=== PATIENT | female | born 1940 | race Caucasian/White ===

== ENCOUNTER 2017-12-10 13:46 | Outpatient (CLI) | payer MEDICARE, SELFPAY ==
--- NOTE | 2017-12-10 12:58 | W.PREOPHP ---
Documented by User: Sharlene Yixon 12/16/17 07:59 Assessment and Plan (1) Tear of right supraspinatus tendon: Current visit: No Status: Acute Plan: Reviewed surgery including surgical technique, pertinent anatomy, recovery process, benefits and risks including but not limited to risk of infection, blood clots, damage to soft tissue/blood vessels/nerves. After discussion patient understands risks and elects to proceed with surgery. Patient had opportunity to have questions answered to her satisfaction. Patient will continue with her preoperative visits and will be scheduled for right shoulder arthroscopy with rotator cuff repair with Dr. Gurrola, she will contact office if issues arise. History of Present Illness Narrative: Ms. Diop is a 77 old female who presents to clinic for preoperative visit for her scheduled right rotator cuff repair with Dr. Gurrola. Patient is right-hand dominant. Describes onset of right shoulder pain beginning 2 years ago and had gradually worsening of pain. She denies any known injury. Patient describes pain as an ache in the anterior lateral aspect of her shoulder that radiates posteriorly down the arm. Pain is aggravated by reaching behind her back and with certain movements. She describes being unable to lift any weighted object above shoulder height. Patient has seen her primary care provider for this and received 2 injections before being referred to orthopedic clinic where she received 2 additional posterior approach subacromial injections. Patient reports her last injection was on September 01, 2017 and it helped until early November. Patient has also attended two separate 6-week sessions of physical therapy, states the first round of physical therapy helped to have slight improvement in her strength but denies any further improvement. Patient's pain is slightly alleviated by heat and ice application as well as jzop-cgb-ohzctil pain medications. Patient denies any numbness or tingling. Patient denies any recent injuries or falls. Although patient has had pain relief from corticosteroid injections she continues to have weakness. At this time patient has failed conservative therapies and elects to have surgical intervention. 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 As per Dr. Gurrola's note on September 01, 2017 the MRI revealed high-grade partial but likely full-thickness tear of the supraspinatus tendon, as well as infraspinatus tendinosis. Pertinent Surgical Information Past medical history of GERD with history of peptic ulcer with H. pylori, reports last ulcer was in 2013 and denies any symptoms since. Reports acid reflux is under control and she takes ranitidine as needed. Describes history of irregular heartbeat that has been ongoing for numerous years. Describes occasional flutter with irregularity. Patient has seen her PCP for this issue previously and reports she has worn a Holter monitor. She denies any recent episodes. She denies any chest pain, difficulty breathing, diaphoresis or radiating pain when she experiences the flutter. As per patient's chart she has a history of adrenal mass however upon questioning patient denies any known history of adrenal mass. Denies any known adrenal gland, kidney or urinary issues. Denies past medical history of: Hypertension, stroke, cardiac issues, angina, asthma, COPD, sleep apnea, renal issues, liver issues, hepatitis, hyperlipidemia, bleeding disorders, seizures, migraines, anxiety, depression, diabetes Denies prior complications from surgery or anesthesia. Review of Systems Constitutional Denies fever(s), Denies frequent falls and Reports headache(s) (occasional ) Eyes Denies change in vision ENT Denies dizziness, Reports headache(s) (occasional ), Denies epistaxis, Denies nasal congestion, Denies nasal discharge and Denies sore throat Cardiovascular Denies chest pain, Denies rapid heart rate, Reports irregular heart rhythm, Denies dyspnea, Denies dyspnea on exertion and Denies slow heart rate Respiratory Denies dyspnea, Denies dyspnea on exertion and Denies wheezing Gastrointestinal Denies abdominal pain, Denies melena, Denies hematochezia, Denies constipation, Denies diarrhea, Denies nausea and Denies vomiting Genitourinary Denies hematuria, Denies dysuria and Denies urinary urgency Musculoskeletal Reports as per HPI, Reports limited range of motion, Reports muscle cramps (bilateral leg cramps at night on occasion ), Reports muscle weakness, Denies numbness and Denies tingling Neurologic Denies dizziness, Denies frequent falls, Reports headache(s) (occasional ), Denies numbness and Denies tingling Psychiatric Denies anxiety and Denies depression Allergic/Immunologic Denies wheezing [facility] Family History Mother Essential hypertension Father Neoplasm Cerebrovascular accident Sister Neoplasm Brother Essential hypertension Grandfather Heart disease Grandfather Cerebrovascular accident Grandmother Neoplasm Grandmother Cerebrovascular accident Brother No problems noted. Sister No problems noted. Sister No problems noted. Sister Neoplasm Sister Arthritis Medical History Tear of right supraspinatus tendon (Acute 02/13/17) TMJ (temporomandibular joint disorder) (Acute 12/11/15) Shoulder pain (Acute 12/24/06) Right shoulder pain (Acute) Reflux gastritis (Acute 06/14/14) Rectal hemorrhage (Acute 02/23/02) Rash (Acute 03/21/14) Primary malignant neoplasm of uterine adnexa (Acute) Osteopenia (Acute) Knee pain (Acute) Incomplete tear of right rotator cuff (Acute 04/21/17) Hypothyroidism (Acute 10/20/12) H. pylori infection (Acute 11/16/13) Chronic pruritus (Acute 02/04/17) Adrenal mass (Acute) Social History Smoking/Tobacco Use Status: Former Tobacco Use Surgical History Abdominal hysterectomy BUNIONECTOMY (~02/2004) Colonoscopy - [facility] Home Medications Medication Instructions Recorded Confirmed Type cetirizine 10 mg PO DAILY PRN tab-cap 06/14/14 12/10/17 History ranitidine HCl [Zantac 75] 75 mg PO DAILY PRN tab-cap 06/14/14 12/10/17 History levothyroxine 100 mcg PO DAILY #90 tab-cap 02/13/17 12/10/17 Rx Allergies Allergy/AdvReac Type Severity Reaction Status Date / Time No Known Allergies Allergy Unverified 12/10/17 13:09 Exam Const General: cooperative and no acute distress [facility] Head: normal to inspection, normocephalic and atraumatic Ears: external ears normal General nose exam: external nose normal and no nasal discharge Face and sinus: face symmetric Mouth: oral mucosae normal, lip normal, tongue normal and moist mucous membranes Teeth and gingiva: dentition normal Throat: posterior oropharynx normal Eyes General: appearance normal, both eyes and all related structures Pupils: PERRL EOM: EOM intact bilaterally Neck Neck: trachea midline Carotids: normal carotid upstroke Lymphatic: no lymphadenopathy noted Resp Effort & Inspection: normal respiratory effort and able to speak in complete sentences Auscultation: clear to auscultation bilaterally, no rales, no rhonchi and no wheezes Cardio Heart Sounds: S1 normal, S2 normal, no murmurs, no rubs and no other Pulses: radial pulses present bilaterally GI Palpation: soft, no hepatosplenomegaly and nontender Auscultation: normal bowel sounds Skin General skin exam: no rashes or lesions noted Extrem Other: Right shoulder examination: Skin is intact without areas of erythema, edema, rashes or lesions. Active range of motion revealed flexion of 140 degrees, abduction of 140 degrees, external rotation with elbow adducted at side of 30 degrees with pain in the anterior aspect of the shoulder, and internal rotation patient can reach inferior aspect of scapula. Muscle strength testing and range of motion was 4+ out of 5 and grimace was noted with resisted range of motion. Scarf test elicited discomfort. Bear Hugger's test elicited discomfort but no weakness. Baron test elicited pain. [place]'s test was positive for eliciting pain.
--- NOTE | 2017-12-10 15:21 | DSU.FORM ---
12/10/17 ekg ordered by KARAN FLOORING SALESPERSON, no RT available. EKG done by BRICE RN, Pain Clinic/.[employer] PLANT MANAGER
== END 2017-12-10 14:06 ==
PROVIDERS: PCP Family Medicine; Visit Provider Student in an Organized Health Care Education/Training Program
DX: Z01.818 Encounter for other preprocedural examination (principal); S46.811D Strain of other muscles, fascia and tendons at shoulder and upper arm level, right arm, subsequent encounter; X58.XXXD Exposure to other specified factors, subsequent encounter
CPT/HCPCS: NC

== ENCOUNTER 2017-12-16 08:23 | Day surgery (SDC) | payer MEDICARE, SELFPAY ==
[2017-12-16] VITALS (7 sets, daily range): BP systolic 127–158; BP diastolic 50–76; PULSE 63–76; RESP 13–23; TEMP 35.9–36.4; O2SAT 96–99
[2017-12-16] MEDS: Lactated Ringers 1,000 ML 80 ML IV (09:15)
[2017-12-16] MEDS: Bupivacaine 0.25% Pres-Free 10 ML VIAL (09:45)
[2017-12-16] MEDS: Bupivacaine LIPOSOME/PF 133 MG/10 ML VIAL IJ (09:45)
--- NOTE | 2017-12-16 12:29 | W.PM.DSUDISC ---
Discharge Plan Disposition Patient Disposition: HOME Condition: Good Discharge Details Reason For Visit: (R) RTC TEAR Attending Provider: Willian Gurrola Primary Care Provider: Nalini Keen Home Meds and New Rx's Prescriptions: New ibuprofen 600 mg tablet 600 mg PO TID PRNQty: 90 RF: 3 acetaminophen 500 mg capsule 1,000 mg PO Q8H PRN (Reason: pain) Qty: 90 RF: 0 oxycodone 5 mg tablet 5 mg PO Q4H Qty: 15 RF: 0 Continue ranitidine HCl [Zantac 75] 75 MG tablet 75 mg PO DAILY PRNRF: 0 levothyroxine 100 MCG tablet 100 mcg PO DAILY Qty: 90 RF: 12 Discharge Instructions Stand Alone Forms: Galileo montejo/GHADA Equipment/Supplies: Sling Activity:: Elevate Remove Dressings/Wound Care:: 72 hours Shower/Bathe:: 72 hours Diet:: Normal Diet Discharge Orders Discharge Orders: Discharge Order (Routine); Ordered 12/16/17 Ordered By: Willian Gurrola DS: Diagnosis Discharge Diagnosis (1) Tear of right supraspinatus tendon: Status: Acute
--- NOTE | 2017-12-18 08:28 | ROE_ITS ---
REPORT OF OPERATIVE PROCEDURE DATE OF SURGERY December 16, 2017 PREOPERATIVE DIAGNOSIS Right rotator cuff tear. POSTOPERATIVE DIAGNOSES High-grade partial right supraspinatus tear, superior labral tearing, subacromial bursitis, biceps te ndinitis. SURGERY Right shoulder arthroscopic debridement of the labrum from posterior to anterior, biceps tenotomy, ro tator cuff repair, acromioplasty. SURGEON Willian Gurrola M.D. RN [facility] Fransico Storey FINDINGS There was some fraying of the superior labrum from posterior to anterior, approximately 10 to 2 o'natalia ck. This involved the anchor of the biceps tendon. The biceps tendon also showed inflammation. The bi ceps was tenotomized. Extensive debridement was performed. There was some minor arthritic changes see n over the humeral head. There was a high-grade partial tear of the supraspinatus with about 8 millim eters exposed on the articular side with some matching degeneration on the bursal side. This was take n down completely and repaired with two anchors. ANESTHESIA General with interscalene nerve block. COMPLICATIONS None. DISPOSITION The patient was awakened from anesthesia and taken to the Postanesthesia Care Unit in stable [facility] n. INDICATIONS FOR PROCEDURE Sahara is a 77-year old who I had seen previously for persistent right shoulder pain. She had tried conservative treatment options including therapy, anti-inflammatories and injections. She continued to have pain. An MRI showed a high-grade partial supraspinatus tear. Given the failure of conservativ e treatment options, I did offer operative fixation. I reviewed the risks of the procedure to includ e bleeding, infection, pain, stiffness, damage to nerves and vessels, re-tear, need for repeat proced ures, continued weakness. Despite these risks, she elected to proceed. DESCRIPTION OF PROCEDURE Sahara was greeted in the preoperative holding area. Her identity was confirmed and the correct si de was identified and marked. The consent was reviewed with the patient and signed. The history and physical was updated. She was taken back to the PACU for administration of interscalene nerve block o f the right side. This was completed successfully. She was then taken to the Operating Room, where a general anesthetic was administered. She was transferred over to the hospital bed and placed in the b each-chair position once all bony prominences were well padded. The head was placed in a foam head h older, held in a neutral position. The right arm was then prepped with ChloraPrep and draped in a sta ndard fashion. Prophylactic antibiotics in the form of Cefazolin were given. A timeout was performed for safe surgery. The right arm was then placed into a pneumatic arm adair, Spider-2. The surface anatomy of the shoul riky was drawn on the arm and a standard posterior portal was marked. The glenohumeral joint was easil y insufflated with 20 cc of normal saline. The posterior portal was then incised and the shoulder was entered atraumatically. With confirmation of being inside the joint, an anterior portal was made wit h the rotator interval using a spinal needle. A 6.5-mm cannula was inserted within this space. A prob e was then used to perform a diagnostic arthroscopy. This showed some grade 2 chondromalacia of the s uperior aspect of the humeral head. There was also fraying of the labrum, primarily on the posterior aspect, but all the way from 10 to 2 o'clock over the superior labrum. The biceps tendon was mobile a t the level of the tearing of the posterior labrum. The biceps tendon also showed inflammatory change s when brought into the joint. A tenotomy was performed. There was also noted to be some partial tear ing of the subscapularis tendon, which was seen. The tendon was intact though with some minor fraying . Using a shaver this was debrided down to healthy tendinous tissue. The labrum was also debrided brionna n using electrocautery and a shaver. The pouch was inspected, which showed no signs of loose bodies. There were inflammatory changes seen on the underside of the rotator cuff. At the level of the cresce nt, there was notable lift off of the tendon. Approximately 7 to 8 mm of footprint were exposed with very wispy appearing tissues. A probe easily sank into these tissues as attached to the tuberosity. T his was the suspected area of partial tearing, which was likely to be nearly full. A PDS suture was t hen placed through this area for marking. The scope was removed from the glenohumeral space and taken into the subacromial space. There was cherie e bursitis which was seen. The anterior portal was placed lateral to the CA ligament. A bursectomy wa s performed and the underside of the acromion was skeletonized. This showed a somewhat large downward sloping anterolateral spur. The rotator cuff was exposed and the PDS suture was found. This place co rresponded to an area of bursal tearing as well. There was no complete tear seen, but with very minim al probing, I was able to place the probe into the joint. This area was then further cut to identify the tear. The tear was quite small measuring about 6 to 8 mm in width. The footprint was exposed and was roughened with a shaver to promote bleeding. I then used two Mitek Healix anchors to perform a me dial row repair. These were placed without difficulty. A single horizontal mattress suture was placed out of each anchor. These were tested to show they appropriately reduced the rotator cuff tendinous tissue. This was then tied using standard knot tie techniques. There was excellent reapproximation of the tendinous tissue against the footprint. The anterolateral spur of the acromion was then addressed using a posterior cutting block technique. With a barrett in the posterior portal and viewing from the lateral portal, I resected anterolateral spu r and plane with the posterior slip of the acromion. The wound was then irrigated. The scope equipment was removed. All protal sites were closed with a #4 -0 Monocryl. The wounds were dressed with Steri-Strips, 4x4s, ABDs and Medipore tape. She was placed into a sling. At the end of the case, all counts were correct.
== END 2017-12-16 14:23 | disposition home or self-care (01) ==
PROVIDERS: PCP Family Medicine; Visit Provider Student in an Organized Health Care Education/Training Program
PROC: (CPT 29827; principal; 2017-12-16 09:30)
DX: M75.111 Incomplete rotator cuff tear or rupture of right shoulder, not specified as traumatic (principal); S43.431A Superior glenoid labrum lesion of right shoulder, initial encounter; X58.XXXA Exposure to other specified factors, initial encounter; M75.21 Bicipital tendinitis, right shoulder; M94.211 Chondromalacia, right shoulder; M75.51 Bursitis of right shoulder
CPT/HCPCS: 29823; 29826; 76942; C1713; J0131; J0690; J1100; J1885; J2405; L3670

== ENCOUNTER → 2017-12-29 09:36 | Outpatient (BNVA) | payer MEDICARE, SELFPAY | PROVIDERS: PCP Family Medicine; Referring Provider Family Medicine; Visit Provider Student in an Organized Health Care Education/Training Program | DX: S46.811D Strain of other muscles, fascia and tendons at shoulder and upper arm level, right arm, subsequent encounter; X58.XXXD Exposure to other specified factors, subsequent encounter ==

== ENCOUNTER → 2018-01-26 09:02 | Outpatient (BNVA) | payer MEDICARE, SELFPAY | PROVIDERS: PCP Family Medicine; Referring Provider Family Medicine; Visit Provider Student in an Organized Health Care Education/Training Program | DX: M75.111 Incomplete rotator cuff tear or rupture of right shoulder, not specified as traumatic (principal); Z47.89 Encounter for other orthopedic aftercare ==

== ENCOUNTER → 2018-02-25 10:17 | Outpatient (BNVA) | payer MEDICARE, SELFPAY | PROVIDERS: PCP Family Medicine; Referring Provider Family Medicine; Visit Provider Student in an Organized Health Care Education/Training Program | DX: S46.811D Strain of other muscles, fascia and tendons at shoulder and upper arm level, right arm, subsequent encounter (principal); M70.51 Other bursitis of knee, right knee; X58.XXXD Exposure to other specified factors, subsequent encounter | CPT/HCPCS: 20610; 99213; J1040 ==

== ENCOUNTER 2018-03-02 11:39 | Outpatient (CLI) | payer MEDICARE, SELFPAY ==
[2018-03-02 13:46] LABS: ALT 26 U/L (12-78); AST 26 U/L (15-37); Albumin 3.9 g/dL (3.4-5.0); Alkaline Phosphatase 103 U/L (46-116); Anion Gap 8.5 mmol/L (3-11); BUN 15 mg/dL (7-18); Bilirubin, Total 0.4 mg/dL (0.2-1.0); CO2 29.5 mmol/L (21.0-32.0); CREATININE 0.91 mg/dL (0.55-1.02); Calcium 9.5 mg/dL (8.5-10.1); Chloride 103 mmol/L (98-107); Glucose 106 mg/dL (70-100); Potassium 3.9 mmol/L (3.5-5.1); Sodium 141 mmol/L (136-145); TSH (W/Ref FT4) 11.84 uIU/mL (0.358-3.74); Total Protein 7.6 g/dL (6.4-8.2)
[2018-03-02 14:12] LABS: FREE T4 0.97 ng/dL (0.76-1.46)
== END 2018-03-02 11:59 ==
PROVIDERS: PCP Family Medicine; Visit Provider Family Medicine
DX: E03.9 Hypothyroidism, unspecified (principal)
CPT/HCPCS: 36415; 80053; 84439; 84443

== ENCOUNTER → 2018-05-27 09:46 | Outpatient (BNVA) | payer MEDICARE, SELFPAY | PROVIDERS: PCP Family Medicine; Referring Provider Family Medicine; Visit Provider Student in an Organized Health Care Education/Training Program | DX: Z98.890 Other specified postprocedural states (principal); M70.51 Other bursitis of knee, right knee; M70.52 Other bursitis of knee, left knee | CPT/HCPCS: 99212; 99213 ==

== ENCOUNTER → 2018-07-27 09:24 | Outpatient (BNVA) | payer MEDICARE, SELFPAY | PROVIDERS: PCP Family Medicine; Referring Provider Family Medicine; Visit Provider Student in an Organized Health Care Education/Training Program | DX: M70.52 Other bursitis of knee, left knee (principal); M70.51 Other bursitis of knee, right knee; S46.811A Strain of other muscles, fascia and tendons at shoulder and upper arm level, right arm, initial encounter; X58.XXXA Exposure to other specified factors, initial encounter | CPT/HCPCS: 20610; 99212; 99213; J1030 ==

== ENCOUNTER 2018-08-25 08:57 | Outpatient (CLI) | payer MEDICARE, SELFPAY ==
[2018-08-25 11:06] LABS: TSH (W/Ref FT4) 2.63 uIU/mL (0.358-3.74)
== END 2018-08-25 09:17 ==
PROVIDERS: PCP Family Medicine; Visit Provider Family Medicine
DX: E03.9 Hypothyroidism, unspecified (principal)
CPT/HCPCS: 36415; 84443

== ENCOUNTER 2019-06-13 09:35 | Emergency (ER) | payer MEDICARE, SELFPAY ==
[2019-06-13 09:38] VITALS: BP 147/59; PULSE 77; RESP 18; TEMP 36.7; O2SAT 96
--- NOTE | 2019-06-13 09:46 | ED.GENADUL_ITS ---
Discharge Plan Disposition Patient Disposition: HOME Condition: Stable Discharge Details Chief Complaint: RashLesion Clinical Impression: Shingles Primary Care Provider: Nalini Keen ED Provider: Sandra Mims Home Meds and New Rx's Prescriptions: New valacyclovir 1 gram tablet 1,000 mg PO TID 7 Days Qty: 21 RF: 0 Continued ranitidine HCl [Zantac 75] 75 MG tablet 75 mg PO DAILY PRNRF: 0 levothyroxine 100 mcg tablet 100 mcg PO DAILY Qty: 90 RF: 12 ibuprofen 600 mg tablet 600 mg PO TID PRNQty: 90 RF: 3 acetaminophen 500 mg capsule 1,000 mg PO Q8H PRN (Reason: pain) Qty: 90 RF: 0 Discharge Instructions Instructions: Shingles (ED) Additional Instructions: Follow up with primary care provider in 3-5 days. Return to ED sooner if any fever, spreading of rash near ear or eye, worsening pain not relieved by medications, or concerns. Increase oral fluids. Please take Tylenol or Ibuprofen with food every 4-6 hours as needed for pain and swelling. Take medications as directed. Follow strict handwashing. This is contagious for the first 3 to 5 days. Referrals: Nalini Keen MD, [place] [Primary Care Provider] - Medical Decision Making 79-year-old female presents with a vesicular rash noted to the left side of her neck and shoulder. This began got worse on Friday. It extends up into the scalp. No evidence of rash around her ear. She reports tingling and itching. Spoke to primary care provider Dr. Francis prior to arrival who offered to prescribe her antiviral she opted to come to the ED. She denies any fever, chills chest pain shortness of breath. This is most consistent with herpes zoster type rash. Patient was given 5% lidocaine transdermal patch in department and first dose of valacyclovir 1000 mg p.o. Discussed home care and strict return instructions, verbalized understanding. This text was generated using [employer] system, please disregard any oddities of phrase or misspellings. HPI General Mode of arrival: ambulatory . Date/Time Provider Initiated Documentation: 06/13/19 09:37 . Limitations to Documentation: no limitations . Information obtained by: patient . HPI Narrative: 79-year-old female presents with a vesicular rash noted to the left side of her neck and shoulder. This began got worse on Friday. It extends up into the scalp. No evidence of rash around her ear. She reports tingling and itching. Spoke to primary care provider Dr. Francis prior to arrival who offered to prescribe her antiviral she opted to come to the ED. She denies any fever, chills chest pain shortness of breath. Related Data Home Medications Medication Instructions Recorded Confirmed ranitidine HCl [Zantac 75] 75 mg PO DAILY PRN tab-cap 06/14/14 06/13/19 acetaminophen 1,000 mg PO Q8H PRN #90 cap 12/16/17 06/13/19 ibuprofen 600 mg PO TID PRN #90 tab 12/16/17 06/13/19 levothyroxine 100 mcg tablet 100 mcg PO DAILY #90 tab-cap 06/01/19 06/13/19 valacyclovir 1,000 mg PO TID 7 Days #21 tab 06/13/19 Previous Rx's Medication Instructions Recorded acetaminophen 1,000 mg PO Q8H PRN #90 cap 12/16/17 ibuprofen 600 mg PO TID PRN #90 tab 12/16/17 levothyroxine 100 mcg tablet 100 mcg PO DAILY #90 tab-cap 06/01/19 valacyclovir 1,000 mg PO TID 7 Days #21 tab 06/13/19 Allergies Allergy/AdvReac Type Severity Reaction Status Date / Time No Known Allergies Allergy Unverified 06/13/19 09:48 General Stated Complaint: RashLesion JOSE MIGUEL: 4 Review of Systems Narrative: Constitutional: Negative for weight loss, alert and oriented, well groomed, normal body habitus, appears comfortable. HEENT: Denies trauma, headaches, blurry vision, nasal discharge, sore throat, trouble swallowing. Chest: Denies chest pain, palpitations, irregular rhythm, hypertension. Respiratory: Denies Shortness of breath, cough, hemoptysis. GI: Denies abdominal pain, nausea, vomiting, diarrhea, constipation. : Denies dysuria, hematuria, flank pain, rectal bleeding. Skin: She does have a rash noted to her left side of her neck scalp shoulder. Neuro: Denies dizziness, blurry vision, weakness, syncope, headache or facial numbness. Hematologic: Denies easy bruising, intolerance to heat or cold, hair loss. [facility] Medical History Adrenal mass (Ruled-out) no evidence on recent US/ negative by CT Scan [facility] 2006 Bursitis (Resolved) Calcific Chronic pruritus (Chronic 02/04/17) H. pylori infection (Resolved 11/16/13) Hematuria (Resolved) 12/30 resolved Hypothyroidism (Chronic 10/20/12) Incomplete tear of right rotator cuff (Chronic 04/21/17) Status post repair on 12/16/2017 Knee pain (Chronic) Osteopenia (Chronic) 09/27 DEXA: -1.9/-2.2/-2.1 Pes anserinus bursitis of right knee (Acute) Corticosteroid injection: 02/25/18 Primary malignant neoplasm of uterine adnexa (Chronic) 01/30 [facility] Rash (Resolved 03/21/14) Rectal hemorrhage (Resolved 02/23/02) S/P colonoscopy Reflux gastritis (Chronic 06/14/14) Right shoulder pain (Acute) Shoulder pain (Resolved 12/24/06) LEFT FX TMJ (temporomandibular joint disorder) (Chronic 12/11/15) right Surgical History Abdominal hysterectomy [facility]; [facility] BUNIONECTOMY (~02/2004) RIGHT GUERRA'S NEUROMA; DR. GRAJEDA Colonoscopy - [facility] History of bunionectomy of right great toe (Resolved) 02/25/04 right Guerra's neuroma; Dr. Grajeda S/P abdominal hysterectomy (Resolved) [facility] ovarian cancer; [facility] Tear of right supraspinatus tendon (Acute 02/13/17) s/p RIGHT rotator cuff repair 12-16-2017 Family History Mother , AGE 93 Essential hypertension Father , AGE 87 Stroke Pancreatic cancer Brother Essential hypertension Maternal Grandfather Heart disease Paternal Grandfather Stroke Maternal Grandmother Colon cancer Paternal Grandmother Stroke Sister No problems noted. Sister Brain cancer Sister Arthritis Sister , AGE 54 Breast cancer Son No problems noted. Daughter No problems noted. 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 Appears stated age. Normal body habitus. Head: Normocephalic, no trauma. Eyes: Pupils PERRLA, Red reflex noted, EOM's intact. Eyelids symmetrical without lesions, discharge, or swelling. ENT: Bilateral TM's WNL, External ear normal to inspection, no mastoid TTP, swelling, or erythema, Nasal turbinates WNL, no nasal discharge. Normal dentition, Posterior pharynx WNL, no exudate. Chest: RRR, Normal S1, S2, distal pulses intact. Resp: Lungs clear to auscultation bilaterally, no wheezes, rales, or rhonchi. Musculoskeletal: Normal gait, 5/5 strength to all four extremities. Skin: Vesicular erythemic rash noted to her left side of her scalp, neck and shoulder consistent with varicella type rash. Capillary refill less than 2 sec. Neurologic: Cranial nerves II-XII intact. Alert and oriented x 3. DTR's intact. Hematologic/Lymphatic: No ecchymosis, no lymphadenopathy. Course Vital Signs Vital signs: Vital Signs Temperature 36.7 C 06/13/19 09:38 Pulse 77 06/13/19 09:38 Respiratory Rate 18 06/13/19 09:38 Blood Pressure 147/59 H 06/13/19 09:38 Pulse Oximetry 96 06/13/19 09:38 Temperature 36.7 C 06/13/19 09:38 Temperature Source Temporal Artery Scan 06/13/19 09:38 Pulse 77 06/13/19 09:38 Respiratory Rate 18 06/13/19 09:38 Respiratory Effort Non-Labored 06/13/19 09:45 Blood Pressure 147/59 H 06/13/19 09:38 Blood Pressure Position Sitting 06/13/19 09:38 Pulse Oximetry 96 06/13/19 09:38 Oxygen Delivery Method Room Air 06/13/19 09:38 Oxygen Flow Rate 0 06/13/19 09:38 Pain Level 3 06/13/19 09:38
[2019-06-13] MEDS: valACYclovir 1,000 MG TAB 1000 MG PO (09:55)
[2019-06-13] MEDS: Lidocaine 5% Patch 1 PATCH TP (09:55)
== END 2019-06-13 10:04 | disposition home or self-care (01) ==
LOC: ER 10:06
PROVIDERS: Emergency Provider Registered Nurse Emergency; PCP Family Medicine
DX: B02.9 Zoster without complications (principal)
CPT/HCPCS: 99283

== ENCOUNTER 2020-01-14 01:38 | Outpatient (CLI) | payer MEDICARE, SELFPAY ==
[2020-01-14 13:18] LABS: ALT 22 U/L (14-59); AST 29 U/L (15-37); Albumin 3.7 g/dL (3.4-5.0); Alkaline Phosphatase 123 U/L (46-116); Anion Gap 4.2 mmol/L (3-11); BUN 18 mg/dL (7-18); Bilirubin, Total 0.4 mg/dL (0.2-1.0); CO2 28.8 mmol/L (21.0-32.0); CREATININE 0.99 mg/dL (0.55-1.02); Calcium 9.5 mg/dL (8.5-10.1); Chloride 106 mmol/L (98-107); Estimated GFR 54.39 (mL/min/1.73m2); Glucose 82 mg/dL (74-106); Potassium 4.8 mmol/L (3.5-5.1); Sodium 139 mmol/L (136-145); TSH (W/Ref FT4) 3.12 uIU/mL (0.36-3.74); Total Protein 7.2 g/dL (6.4-8.2)
[2020-01-14 15:21] LABS: ESR 29 mm/hr (0-30)
== END 2020-01-14 01:58 ==
PROVIDERS: PCP Family Medicine; Visit Provider Family Medicine
DX: E03.9 Hypothyroidism, unspecified (principal); R25.2 Cramp and spasm; L29.8 Other pruritus
CPT/HCPCS: 36415; 80053; 85652; 84443

== ENCOUNTER 2020-04-13 01:17 | Outpatient (CLI) | payer MEDICARE, SELFPAY ==
--- NOTE | 2020-04-13 07:45 | DI.RAD_ITS ---
EXAM: XR HIP RT COMPLETE AP PELVIS CLINICAL HISTORY: r hip pain,M25.551. TECHNIQUE: 2D digital imaging was performed. COMPARISON: No exams were available for comparison FINDINGS: There is no evidence of pelvic nor hip fracture. Hip joints appear symmetrical without significant j oint space narrowing. Additional lateral view of the right hip reveals but small benign bone island in the femoral neck. Sacroiliac joints unremarkable. No osseous lesions. IMPRESSION: No significant radiograph findings in the hips. DATA REPOSITORY: RADIATION DOSE DELIVERED:
--- NOTE | 2020-04-13 07:45 | DI.RAD_ITS ---
EXAM: XR LUMBAR SPINE COMPLETE CLINICAL HISTORY: LOW BACK AND LT BUTTOCK PAIN, ,ACUTE,M54.5. TECHNIQUE: 2D digital imaging was performed. COMPARISON: No exams were available for comparison FINDINGS: There is no evidence of compression fracture or listhesis nor pars defects. Disc spaces exhibit norm al height with the exception of L2-3 level which exhibits moderate disc space narrowing and anterior osteophytes. Mild degenerative changes are noted in the facet joints at L5-S1. Other facets appear unremarkable. Sacroiliac joints appear age-appropriate. There are no osseous lesions. Multiple fernando gical clips are noted in the abdomen. Bone density normal IMPRESSION: There is disc space narrowing at L2-3 level. DATA REPOSITORY: RADIATION DOSE DELIVERED:
== END 2020-04-13 01:18 ==
LOC: DI 01:17
PROVIDERS: PCP Family Medicine; Visit Provider Family Medicine
DX: M25.551 Pain in right hip (principal); M54.5 Low back pain; M51.36 Other intervertebral disc degeneration, lumbar region
CPT/HCPCS: 72110; 73502

== ENCOUNTER → 2020-07-27 10:11 | Outpatient (BNVA) | payer MEDICARE, SELFPAY | PROVIDERS: PCP Family Medicine; Referring Provider Family Medicine; Visit Provider Student in an Organized Health Care Education/Training Program | DX: M25.551 Pain in right hip (principal); M70.61 Trochanteric bursitis, right hip | CPT/HCPCS: 20610; 99213; J1040 ==

== ENCOUNTER → 2020-09-07 08:37 | Outpatient (BNVA) | payer MEDICARE, SELFPAY | PROVIDERS: PCP Family Medicine; Referring Provider Family Medicine; Visit Provider Student in an Organized Health Care Education/Training Program | DX: M70.71 Other bursitis of hip, right hip (principal); Z98.890 Other specified postprocedural states | CPT/HCPCS: 99213 ==

== ENCOUNTER 2021-08-16 03:19 | Outpatient (CLI) | payer MEDICARE, SELFPAY | END 2021-08-16 03:20 | disposition home or self-care (01) | LOC: LOS 03:19 | PROVIDERS: PCP Family Medicine; Visit Provider Family Medicine ==

== ENCOUNTER 2021-08-20 03:36 | Outpatient (CLI) | payer MEDICARE, SELFPAY ==
[2021-08-20 12:40] LABS: Abs Immature Grans 0.02 10^3/uL (0.0-0.06); Absolute Basophil Count 0.04 10^3/uL (0.0-0.2); Absolute Eosinophil Count 0.15 10^3/uL (0.0-0.7); Absolute Lymphocyte Count 1.77 10^3/uL (1.2-3.4); Absolute Monocyte Count 0.51 10^3/uL (0.1-0.8); Basophils % 0.7; Eosinophils % 2.5; HCT 40.9 % (36.0-46.0); HGB 13.2 g/dL (11.2-15.7); Immature Grans % 0.3; Lymphocytes % 30.1; MCH 28.3 pg (27.0-33.0); MCHC 32.3 % (32.0-36.0); MCV 88 fL (80-95); MPV 9.6 fL (8.0-11.0); Monocytes % 8.7; Neutrophils % 57.7; Platelet Count 277 10^3/uL (130-400); RBC 4.66 10^6/uL (3.93-5.22); RDW 12.8 % (11.7-14.6); RDW-SD 40.8 fL; WBC 5.89 10^3/uL (4.4-10.8)
[2021-08-20 13:48] LABS: ALT 16 U/L (14-59); AST 14 U/L (15-37); Albumin 3.5 g/dL (3.4-5.0); Alkaline Phosphatase 113 U/L (46-116); Anion Gap 9.3 mmol/L (3-11); BUN 17 mg/dL (7-18); Bilirubin, Total 0.3 mg/dL (0.2-1.0); CO2 26.7 mmol/L (21.0-32.0); CREATININE 0.9 mg/dL (0.55-1.02); Chloride 105 mmol/L (98-107); Glucose 90 mg/dL (74-106); Potassium 4.3 mmol/L (3.5-5.1); Sodium 141 mmol/L (136-145); TSH (W/Ref FT4) 1.29 uIU/mL (0.36-3.74); Total Protein 7.3 g/dL (6.4-8.2)
== END 2021-08-20 03:37 | disposition home or self-care (01) ==
LOC: LOS 03:36
PROVIDERS: PCP Family Medicine; Visit Provider Family Medicine
DX: E03.9 Hypothyroidism, unspecified (principal); L30.8 Other specified dermatitis
CPT/HCPCS: 36415; 80053; 84443; 85025

== ENCOUNTER 2022-05-06 10:17 | Outpatient (CLI) | payer MEDICARE, SELFPAY | END 2022-05-06 10:18 | disposition home or self-care (01) | LOC: LOS 10:17 | PROVIDERS: PCP Family Medicine; Referring Provider Family Medicine; Visit Provider Family Medicine | DX: E03.9 Hypothyroidism, unspecified (principal); I10 Essential (primary) hypertension; M79.18 Myalgia, other site; M25.50 Pain in unspecified joint; K29.60 Other gastritis without bleeding; L29.8 Other pruritus | CPT/HCPCS: 36415; 80053; 85027; 85652; 86200; 84443; 86431 ==

== ENCOUNTER 2022-07-12 00:24 | Outpatient (CLI) | payer MEDICARE, SELFPAY ==
--- NOTE | 2022-07-12 07:45 | DI.DEXA_ITS ---
Exam(s) XR DEXA BONE DENSITY W/WO JUAN CARLOS EXAM: XR DEXA BONE DENSITY W/WO JUAN CARLOS CLINICAL HISTORY: screening for osteoporosis in postmenopausal woman,z78.0 TECHNIQUE: COMPARISON: DX JUAN CARLOS from 05/23/2008 FINDINGS: Lateral Spine Image: Unremarkable. No compression deformities identified. Left hip: Total T-Score: -2.4. This compares with -2.0 on the prior examination. Total Z-Score: -0.3 T- and Z-scores: The findings are consistent with osteopenia. There is osteoporosis in the femoral n rg with a T-score of -2.7. Lumbar Spine: Total T-Score: -1.3. This compares with a total T-score of -1.6 on the prior examination. Total Z-Score: 1.4 T- and Z-scores: This is consistent with osteopenia. IMPRESSION: Osteoporosis in the left femoral neck.
== END 2022-07-12 00:44 ==
LOC: DI 00:24
PROVIDERS: PCP Family Medicine; Visit Provider Family Medicine
DX: Z78.0 Asymptomatic menopausal state (principal); M85.89 Other specified disorders of bone density and structure, multiple sites; Z13.820 Encounter for screening for osteoporosis
CPT/HCPCS: 77080

== ENCOUNTER 2022-07-12 15:02 | Outpatient (REF) | payer MEDICARE, SELFPAY ==
[2022-07-15 15:55] LABS: Helicobacter pylori Ag, Feces Negative (Negative)
== END 2022-07-12 15:03 | disposition home or self-care (01) ==
LOC: LBN 15:02
PROVIDERS: PCP Family Medicine; Visit Provider Family Medicine
DX: K29.60 Other gastritis without bleeding (principal)
CPT/HCPCS: 87338

== ENCOUNTER 2022-07-29 11:58 | Outpatient (CLI) | payer MEDICARE, SELFPAY ==
--- NOTE | 2022-07-29 11:00 | DI.RAD_ITS ---
Exam(s) XR SHOULDER LT COMPLETE 2+V EXAM: XR SHOULDER LT COMPLETE 2+V CLINICAL HISTORY: LEFT SHOULDER PAIN. TECHNIQUE: 2D digital imaging was performed of the left shoulder. Three images were obtained. AP, Y and axillary views were obtained. COMPARISON: No exams were available for comparison FINDINGS: BONES: No acute fracture is present. No bony destructive lesion is seen. JOINTS: No dislocation present. There are mild hypertrophic changes seen at the acromioclavicular jamie nt. The glenohumeral joint is well maintained. SOFT TISSUE: Normal. IMPRESSION: Mild degenerative changes of the AC joint. DATA REPOSITORY: RADIATION DOSE DELIVERED:
--- NOTE | 2022-07-29 11:00 | DI.RAD_ITS ---
Exam(s) XR KNEE RT 3V AP,LAT,JERI EXAM: XR KNEE RT 3V AP,LAT,JERI CLINICAL HISTORY: RIGHT KNEE PAIN. TECHNIQUE: 2D digital imaging was performed of the right knee. Three views obtained. AP, lateral an d PA tunnel views were obtained. COMPARISON: No exams were available for comparison FINDINGS: BONES: No acute fracture is present. No bony destructive lesion is seen. There is a small enthesophyt e at the superior patella. JOINTS: The knee is normally aligned. There is a small joint effusion. There is moderate narrowing a nd mild spurring in the medial femoral tibial joint. The joint spaces are otherwise well maintained. SOFT TISSUE: Normal. IMPRESSION: Moderate degenerative changes in the right knee. DATA REPOSITORY: RADIATION DOSE DELIVERED:
== END 2022-07-29 11:59 | disposition home or self-care (01) ==
LOC: DIORS 11:58
PROVIDERS: PCP Family Medicine; Referring Provider Family Medicine; Visit Provider Student in an Organized Health Care Education/Training Program
DX: M25.512 Pain in left shoulder (principal); M25.561 Pain in right knee; M17.11 Unilateral primary osteoarthritis, right knee; M75.82 Other shoulder lesions, left shoulder
CPT/HCPCS: 20610; 73562; 73030; J1040

== ENCOUNTER 2022-10-30 16:01 | Emergency (ER) | payer MEDICARE, SELFPAY ==
--- NOTE | 2022-10-30 15:45 | RT.EKG_ITS ---
APPROVED REPORT Exam: Resting ECG Reason for Exam: Chest pressure Patient Location: E HR:89 bpm ECG Measurements Heart Rate 89 AXIS FL 169 P 73 QRSd 77 QRS -8 QT 364 T -25 QTc 444 Conclusion Sinus arrhythmia...V-rate 67- 98, variation>10% Low voltage, precordial leads...precordial leads <1.0mV Probable anterolateral infarct, recent...Q>30mS,ST>0.1mV,T neg, V2-6,I,aVL Abnormal T, consider ischemia, inferior leads...T <-0.20mV, II III aVF Narrow complex normal sinus rhythm at a rate of [address] segment elevation V2, scott d I, aVL with reciprocal ST segment depressions inferiorly. No prior for comparison. Consistent wit h STEMI.
--- NOTE | 2022-10-30 16:00 | DI.RAD_ITS ---
Exam(s) XR PORTABLE CHEST AP EXAM: XR PORTABLE CHEST AP CLINICAL HISTORY: chest pain. TECHNIQUE: 2D digital imaging was performed. COMPARISON: No exams were available for comparison FINDINGS: Single AP portable view. Heart size is upper normal. The mediastinum is not widened. Lungs are clear. No infiltrates nor obvious pleural effusions. IMPRESSION: No acute pulmonary findings on this single AP portable view of the chest. DATA REPOSITORY: RADIATION DOSE DELIVERED:
[2022-10-30 16:03] VITALS: BP 118/80; PULSE 84; RESP 20; O2SAT 97
[2022-10-30 16:07] VITALS: RESP 20
[2022-10-30] MEDS: MORPHine 10 MG/ML VIAL 2 MG IVP (16:29)
[2022-10-30] MEDS: Ondansetron 4 MG/2 ML VIAL IVP (16:30)
--- NOTE | 2022-10-30 16:30 | RT.EKG_ITS ---
APPROVED REPORT Exam: Resting ECG Reason for Exam: repeat Patient Location: E HR:71 bpm ECG Measurements Heart Rate 71 AXIS WY 172 P 45 QRSd 78 QRS 14 QT 387 T 35 QTc 421 Conclusion Sinus rhythm...normal P axis, V-rate 60- 99 Low voltage, precordial leads...precordial leads <1.0mV Consider anterior infarct...Q >30mS in V2-V5 Narrow complex normal sinus rhythm at a rate of 71. No acute injury pattern. Intervals within abelardo l limits.
[2022-10-30 16:35] LABS: Abs Immature Grans 0.03 10^3/uL (0.0-0.06); Absolute Basophil Count 0.05 10^3/uL (0.0-0.2); Absolute Lymphocyte Count 2.65 10^3/uL (1.2-3.4); Absolute Monocyte Count 0.81 10^3/uL (0.1-0.8); Basophils % 0.5; Eosinophils % 1.6; HCT 36.9 % (36.0-46.0); HGB 12.2 g/dL (11.2-15.7); Immature Grans % 0.3; Lymphocytes % 24.3; MCH 28.7 pg (27.0-33.0); MCHC 33.1 % (32.0-36.0); MCV 87 fL (80-95); MPV 9.4 fL (8.0-11.0); Monocytes % 7.4; Neutrophils % 65.9; Platelet Count 289 10^3/uL (130-400); RBC 4.25 10^6/uL (3.93-5.22); RDW 13.3 % (11.7-14.6); RDW-SD 41.9 fL; WBC 10.92 10^3/uL (4.4-10.8)
[2022-10-30] MEDS: Heparin in 0.45% NaCl 25,000 UNIT/250 ML BAG 12 UNIT IV (16:35)
[2022-10-30 16:37] LABS: Absolute Eosinophil Count 0.17 10^3/uL (0.0-0.7)
[2022-10-30 16:42] LABS: ALT 20 U/L (14-59); AST 26 U/L (15-37); Albumin 3.8 g/dL (3.4-5.0); Alkaline Phosphatase 114 U/L (46-116); Anion Gap 10.7 mmol/L (3-11); BUN 17 mg/dL (7-18); Bilirubin, Total 0.3 mg/dL (0.2-1.0); CO2 26.3 mmol/L (21.0-32.0); CREATININE 0.9 mg/dL (0.55-1.02); Calcium 9.2 mg/dL (8.5-10.1); Chloride 103 mmol/L (98-107); Estimated GFR 64.63 (mL/min/1.73m2); Glucose 108 mg/dL (74-106); Magnesium 2.1 mg/dL (1.8-2.4); Potassium 3.5 mmol/L (3.5-5.1); Sodium 140 mmol/L (136-145); Total Protein 7.9 g/dL (6.4-8.2); Troponin I < 50 ng/L (<or=60)
--- NOTE | 2022-10-30 16:45 | RT.EKG_ITS ---
APPROVED REPORT Exam: Resting ECG Reason for Exam: repeat Patient Location: E HR:90 bpm ECG Measurements Heart Rate 90 AXIS DC 159 P 71 QRSd 93 QRS -15 QT 376 T -29 QTc 461 Conclusion Sinus rhythm...normal P axis, V-rate 60- 99 Anterolateral infarct, acute...ST >0.20mV, V2-V6,I,aVL Narrow complex normal sinus rhythm at a rate of [address] segment elevation with in ferior depressions. QTc within normal limits. Consistent with STEMI.
[2022-10-30] MEDS: MORPHine 4 MG/ML SYR (16:50)
[2022-10-30] MEDS: nitroGLYcerin in D5W 50 MG/250 ML BTL 95.255 MG IV (16:56)
[2022-10-30] MEDS: Clopidogrel 300 MG TAB PO (17:03)
[2022-10-30] MEDS: Tenecteplase 50 MG KIT 35 MG IVP (17:04)
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
[2022-10-30 17:11] LABS: Prothrombin Time 10.6 sec (9.3-11.0)
[2022-10-30] MEDS: fentaNYL 100 MCG/2 ML VIAL 50 MCG IVP (17:17)
[2022-10-30 17:38] LABS: PTT Activated 142.8 sec (21.5-31.9)
[2022-10-30 18:07] VITALS: BP 118/72; PULSE 90; RESP 20; O2SAT 94
[2022-10-30 18:37] LABS: PTT Activated 113.4 sec (21.5-31.9)
== END 2022-10-30 18:07 | disposition short-term general hospital (02) ==
PROVIDERS: Emergency Provider Physician Assistant; PCP Family Medicine
DX: I21.3 ST elevation (STEMI) myocardial infarction of unspecified site (principal)
CPT/HCPCS: 80053; 93005; 96365; 96368; 96375; 99291; 71045; 83735; 84484; 85025; 85610; 85730; 93010; J2270; J2405; J3010; J3101

== ENCOUNTER 2022-11-22 11:21 | Outpatient (RCR) | payer MEDICARE, SELFPAY | END 2022-11-23 23:59 | disposition home or self-care (01) | LOC: CR 11:21 | PROVIDERS: PCP Family Medicine; Visit Provider Internal Medicine Cardiovascular Disease | DX: I25.2 Old myocardial infarction (principal); Z51.89 Encounter for other specified aftercare | CPT/HCPCS: S9472 ==

== ENCOUNTER 2022-12-23 10:25 | Outpatient (RCR) | payer MEDICARE, SELFPAY | END 2022-12-24 23:59 | disposition home or self-care (01) | LOC: CR 10:25 | PROVIDERS: PCP Family Medicine; Visit Provider Internal Medicine Cardiovascular Disease | DX: I25.2 Old myocardial infarction (principal); Z51.89 Encounter for other specified aftercare | CPT/HCPCS: S9472 ==

== ENCOUNTER 2023-01-22 08:27 | Outpatient (RCR) | payer MEDICARE, SELFPAY | END 2023-01-23 23:59 | disposition home or self-care (01) | LOC: CR 08:27 | PROVIDERS: PCP Family Medicine; Visit Provider Internal Medicine Cardiovascular Disease | DX: I25.2 Old myocardial infarction (principal); Z51.89 Encounter for other specified aftercare | CPT/HCPCS: S9472 ==

== ENCOUNTER 2023-02-19 10:00 | Outpatient (RCR) | payer MEDICARE, SELFPAY | END 2023-02-23 23:59 | disposition home or self-care (01) | LOC: CR 10:00 | PROVIDERS: PCP Family Medicine; Visit Provider Internal Medicine Cardiovascular Disease | DX: I25.10 Atherosclerotic heart disease of native coronary artery without angina pectoris (principal); Z95.5 Presence of coronary angioplasty implant and graft; Z51.89 Encounter for other specified aftercare | CPT/HCPCS: S9472 ==

== ENCOUNTER → 2023-03-06 09:48 | Outpatient (BNVA) | payer MEDICARE, SELFPAY | PROVIDERS: PCP Family Medicine; Referring Provider Family Medicine | DX: M17.11 Unilateral primary osteoarthritis, right knee (principal) | CPT/HCPCS: 20610; J1040 ==

== ENCOUNTER → 2023-05-30 01:11 | Outpatient (CLI) | payer MEDICARE, SELFPAY ==
--- NOTE | 2023-05-30 09:19 | DI.RAD_ITS ---
Exam(s) XR THORACIC SPINE COMPLETE EXAM: XR THORACIC SPINE COMPLETE CLINICAL HISTORY: thoracic pain,m54.6. TECHNIQUE: 2D digital imaging was performed. Three views. COMPARISON: None FINDINGS: BONES: Minimal compression of midthoracic vertebral bodies. No destructive lesion. Minimal endplate osteophytes. ALIGNMENT: Dextroscoliosis at the L1-2 level. DISKS: Mild narrowing of the anterior disc spaces and minimal endplate osteophytes. SOFT TISSUE: Visualized lungs are clear. Coronary artery stent. IMPRESSION: Chronic appearing mild midthoracic compression fractures. Mild degenerative changes. DATA REPOSITORY: RADIATION DOSE DELIVERED:
== END ==
PROVIDERS: PCP Family Medicine; Visit Provider Family Medicine
DX: M54.6 Pain in thoracic spine (principal); M48.54XA Collapsed vertebra, not elsewhere classified, thoracic region, initial encounter for fracture
CPT/HCPCS: 72072

== ENCOUNTER → 2023-06-30 10:08 | Outpatient (BNVA) | payer MEDICARE, SELFPAY | PROVIDERS: PCP Family Medicine; Referring Provider Family Medicine; Visit Provider Student in an Organized Health Care Education/Training Program | DX: M17.11 Unilateral primary osteoarthritis, right knee (principal) | CPT/HCPCS: 20610; J1010 ==

== ENCOUNTER → 2023-10-23 10:35 | Outpatient (BNVA) | payer MEDICARE, SELFPAY | PROVIDERS: PCP Family Medicine; Referring Provider Family Medicine; Visit Provider Student in an Organized Health Care Education/Training Program | DX: M17.11 Unilateral primary osteoarthritis, right knee (principal) | CPT/HCPCS: 20610; J1010 ==

== ENCOUNTER → 2024-02-12 10:24 | Outpatient (BNVA) | payer MEDICARE, SELFPAY | PROVIDERS: PCP Family Medicine; Referring Provider Family Medicine; Visit Provider Student in an Organized Health Care Education/Training Program | DX: M17.11 Unilateral primary osteoarthritis, right knee (principal) | CPT/HCPCS: 20610; J1010 ==

== ENCOUNTER 2024-02-20 00:37 | Outpatient (CLI) | payer MEDICARE, SELFPAY ==
--- NOTE | 2024-02-20 07:00 | DI.RAD_ITS ---
Exam(s) XR LUMBAR SPINE COMPLETE EXAM: XR LUMBAR SPINE COMPLETE CLINICAL HISTORY: low back and thoracic pain - worsening, M54.6, M54.50. TECHNIQUE: 2D digital imaging was performed. Five views. COMPARISON: CR XR LUMBAR SPINE COMPLETE from 04/13/2020 CR XR DEXA BONE DENSITY W/WO JUAN CARLOS from 07/12/2022 FINDINGS: BONES: No fracture or destructive lesion. Vertebral body heights are maintained. Mild facet hypert rophy identified at L5-S1. The SI joints and pubic symphysis and visualized portions of the hip marisol ints are unremarkable. DISKS: Moderate narrowing of the L2-3 disc space with some slight worsening from the prior exam. S mall endplate osteophytes. The remaining intervertebral disc spaces are maintained. ALIGNMENT: Slight degenerative scoliosis SOFT TISSUE: Surgical clips. Vascular calcifications. IMPRESSION: Moderate degenerative disc changes at L 2 3. DATA REPOSITORY: RADIATION DOSE DELIVERED:
--- NOTE | 2024-02-20 07:00 | DI.RAD_ITS ---
Exam(s) XR THORACIC SPINE COMPLETE EXAM: XR THORACIC SPINE COMPLETE CLINICAL HISTORY: low back and thoracic pain, M54.6, M54.50. TECHNIQUE: 2D digital imaging was performed. Three views. COMPARISON: CR RIGHT SHOULDER COMPLETE from 09/25/2016 CR XR PORTABLE CHEST AP from 10/30/2022 CR XR THORACIC SPINE COMPLETE from 05/30/2023 FINDINGS: BONES: There is no fracture or destructive lesion. The vertebral bodies and posterior elements are un remarkable. ALIGNMENT: Within normal limits. DISKS: Mild narrowing of the anterior disc spaces in the mid thoracic region with small endplate ost eophytes. SOFT TISSUE: Visualized lungs are clear. Heart size is normal. A coronary artery stent is noted. IMPRESSION: Mild degenerative changes in the mid thoracic spine. DATA REPOSITORY: RADIATION DOSE DELIVERED:
== END 2024-02-20 00:57 ==
LOC: DI 00:37
PROVIDERS: PCP Family Medicine; Visit Provider Family Medicine
DX: M51.35 Other intervertebral disc degeneration, thoracolumbar region
CPT/HCPCS: 72072; 72110

== ENCOUNTER 2024-02-26 04:15 | Outpatient (CLI) | payer MEDICARE, SELFPAY ==
[2024-02-27 12:43] LABS: Albumin 60.2 % (55.8-66.1); Total Protein 6.6 g/dL (6.3-8.2)
== END 2024-02-26 04:16 | disposition home or self-care (01) ==
LOC: LOS 04:15
PROVIDERS: PCP Family Medicine; Visit Provider Family Medicine
DX: M54.50 Low back pain, unspecified (principal); M54.6 Pain in thoracic spine
CPT/HCPCS: 36415; 84165

== ENCOUNTER 2024-05-04 15:01 | Outpatient (CLI) | payer MEDICARE, SELFPAY ==
[2024-05-04 14:56] LABS: HGB 13.2 g/dL (11.2-15.7); MCH 29.3 pg (27.0-33.0); MCHC 32.2 % (32.0-36.0); MCV 91 fL (80-95); MPV 9.1 fL (8.0-11.0); Platelet Count 221 10^3/uL (130-400); RDW 12.3 % (11.7-14.6); RDW-SD 41.3 fL; WBC 7.98 10^3/uL (4.4-10.8)
[2024-05-04 16:31] LABS: Anion Gap 7.7 mmol/L (3-11); BUN 20 mg/dL (7-18); CO2 30.3 mmol/L (21.0-32.0); CREATININE 0.8 mg/dL (0.55-1.02); Calcium 9.2 mg/dL (8.5-10.1); Chloride 108 mmol/L (98-107); Estimated GFR 73.52 (mL/min/1.73m2); Glucose 100 mg/dL (74-106); Potassium 3.8 mmol/L (3.5-5.1); Sodium 146 mmol/L (136-145)
== END 2024-05-04 15:02 | disposition home or self-care (01) ==
LOC: LBO 15:02
PROVIDERS: PCP Family Medicine; Visit Provider Student in an Organized Health Care Education/Training Program
DX: Z01.818 Encounter for other preprocedural examination (principal); M17.11 Unilateral primary osteoarthritis, right knee
CPT/HCPCS: 36415; 80048; 85027; 99024; 73560; 77073

== ENCOUNTER 2024-05-04 15:57 | Outpatient (CLI) | payer MEDICARE, SELFPAY ==
--- NOTE | 2024-05-04 14:00 | DI.RAD_ITS ---
Exam(s) XR KNEE RT 1V EXAM: XR KNEE RT 1V CLINICAL HISTORY: right knee pain. TECHNIQUE: 2D digital imaging was performed. COMPARISON: CR XR KNEE RT 3V AP,LAT,JERI from 07/29/2022 CR XR STANDING ALIGNMENT from 05/04/2024 FINDINGS: Single lateral view of the right knee No evidence of fracture but there does appear to be a small joint effusion. There is also significan t narrowing of the medial compartment evident. No osseous lesions. Bone density appears normal. IMPRESSION: Significant narrowing of the medial compartment. Small joint effusion. DATA REPOSITORY: RADIATION DOSE DELIVERED:
--- NOTE | 2024-05-04 14:00 | DI.RAD_ITS ---
Exam(s) XR STANDING ALIGNMENT EXAM: XR STANDING ALIGNMENT CLINICAL HISTORY: right knee DJD. TECHNIQUE: 2D digital imaging was performed. COMPARISON: No exams were available for comparison FINDINGS: 3 views There is advanced degenerative narrowing the medial compartment of the right knee and there also taylor inal osteophytes off the medial aspect of the right knee. There are also degenerative subarticular c ysts on both sides of the medial compartment both in the tibial plateau and subarticular medial femor al condyle. The lateral compartment of the right knee exhibits normal height. In the subcutaneous tissues on the medial aspect of the right knee there multiple venous varicosities . There is no degenerative narrowing of the medial lateral compartments of the opposite-left knee and n o significant degenerative narrowing of the hip joints. Ankles also appear unremarkable. SI joints appear unremarkable. IMPRESSION: Advanced degenerative narrowing of the medial compartment of the right knee. Multiple varicosities in the medial subcutaneous soft tissues of the right lower thigh and medial rig ht knee. DATA REPOSITORY: RADIATION DOSE DELIVERED:
== END 2024-05-04 15:58 | disposition home or self-care (01) ==
LOC: DIORS 15:57
PROVIDERS: PCP Family Medicine; Referring Provider Family Medicine; Visit Provider Physician Assistant
DX: M17.11 Unilateral primary osteoarthritis, right knee (principal); Z01.818 Encounter for other preprocedural examination
CPT/HCPCS: 99024; 73560; 77073

== ENCOUNTER 2024-05-18 10:58 | Observation (INO) | payer MEDICARE, SELFPAY ==
[2024-05-18] VITALS (20 sets, daily range): BP systolic 110–142; BP diastolic 44–60; PULSE 59–78; RESP 10–21; TEMP 36–36.7; O2SAT 94–98; BMI 28.0
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
[2024-05-18] MEDS: Acetaminophen 500 MG TAB 1000 MG PO (10:53)
[2024-05-18] MEDS: Celecoxib 200 MG CAP 400 MG PO (10:54)
[2024-05-18] MEDS: Gabapentin 300 MG CAP PO (10:54)
[2024-05-18] MEDS: Lactated Ringers 1,000 ML 80 ML IV (10:55)
--- NOTE | 2024-05-18 11:02 | W.PM.DSUDISC ---
Date of service: 05/18/24 Discharge Plan Disposition Patient Disposition: Home Condition: Good Discharge Details Reason For Visit: Right knee DJD Attending Provider: Willian Gurrola Primary Care Provider: Nalini Keen Home Meds and New Rx's Prescriptions: New celecoxib [Celebrex] 200 mg capsule 200 mg PO BID PRNQty: 60 0RF Rx Instructions: Take one tablet twice daily for pain and inflammation aspirin 81 mg tablet,delayed release (DR/EC) 81 mg PO BID 30 Days Qty: 60 0RF acetaminophen 500 mg tablet 1,000 mg PO Q8H PRN Qty: 90 0RF Rx Instructions: Take two tablets up to every 8 hours as needed for pain pantoprazole 40 mg tablet,delayed release (DR/EC) 40 mg PO DAILY Qty: 14 0RF dexamethasone 4 mg tablet 4 mg PO DAILY Qty: 2 0RF Rx Instructions: Take one tablet once daily for two days docusate sodium [Colace] 100 mg capsule 100 mg PO BID Qty: 30 0RF gabapentin 300 mg capsule 300 mg PO QHS Qty: 14 0RF Rx Instructions: Take one tablet at bedtime oxycodone 5 mg tablet 5 mg PO Q4H PRNQty: 18 0RF Rx Instructions: Take one tablet up to every 4 hours as needed for severe postoperative pain Continued multivitamin [Daily Multi-Vitamin] Tablet 1 tab PO DAILY metoprolol succinate 25 mg tablet extended release 24 hr 25 mg PO DAILY Qty: 90 4RF ezetimibe 10 mg tablet 10 mg PO DAILY coenzyme Q10 100 mg capsule 100 mg PO DAILY hydrocortisone acetate [Anusol-HC] 25 mg suppository 25 mg DC DAILY PRN (Reason: hemorrhoids) Qty: 24 2RF diphth,pertus(acell),tetanus 2.5-8-5 Lf-mcg-Lf/0.5mL syringe 0.5 ml IM ONCE Qty: 0.5 0RF Rx Instructions: as a single dose losartan 25 mg tablet 25 mg PO DAILY Qty: 90 4RF empagliflozin 10 mg tablet 10 mg PO DAILY Qty: 90 4RF levothyroxine 100 mcg tablet 100 mcg PO DAILY Qty: 90 12RF rosuvastatin 20 mg tablet 20 mg PO DAILY Discontinued aspirin 81 mg tablet,delayed release (DR/EC) 81 mg PO DAILY acetaminophen 500 mg capsule 1,000 mg PO Q8H PRN (Reason: pain) Qty: 90 0RF Discharge Instructions Additional Instructions: Total Knee Discharge Instructions Activity: The most important activity is to walk and to work on gentle motion (both flexion and extension). You should try to take short walks a few times a day. It is important that when resting you work on keeping the knee straight. Avoid putting a pillow behind the knee as this will encourage flexion. Work on range of motion exercises as provided by Physical Therapy. - Start outpatient physical therapy within 2 weeks. - You should wear the MARIO hose on both legs for 2 weeks. You may remove these at night. You may also use any compression sock in place of the MARIO hose. - Utilize [employer] to review exercises, see videos on exercises and obtain basic information pertaining to your surgery and your recovery. Dressing: Remove the Jermaine wrap by 2 days after your surgery and put on the MARIO stocking given to you from the hospital. Keep the surgical dressing (underneath the JERMAINE wrap) in place for at least one week. After the first week it may be removed and replaced with light gauze and tape or nothing. The wound and dressing may get wet after 3 days but avoid soaking the dressing or otherwise it will need to be changed. Many people prefer covering the dressing with cling wrap (saran wrap) to minimize it from getting soaked. If it gets wet, just pat dry. If it starts to peel off then it will need to be changed. Medications: - You should take Tylenol and anti-inflammatory Celebrex as your primary pain control medications. If the Celebrex is too expensive or not covered, please call the office for another alternative (Advil/Ibuprofen or Naproxen/Aleve) - You have been prescribed a stronger pain medication Oxycodone for breakthrough pain, take as needed as prescribed. - You have also been prescribed a stomach acid reduction agent Pantoprozole to help reduce stomach acid and reflux. - You have been prescribed Gabapentin to take at night for restlessness and nerve pain. - You will be taking Aspirin 81mg twice a day for DVT prevention unless instructed otherwise. - You have also been prescribed Decadron to take to control post-operative nausea and pain. You will start this tomorrow. - If you have constipation you should take Colace (which has been prescribed) or Miralax (which is available [id number]). It takes most people 3-4 days to have a bowel movement. Follow-up: 2 weeks If you have any acute concerns or questions, please do not hesitate to contact the office at [phone]. You may contact Dr. Gurrola with any questions after hours through the hospital at [phone] or on his cell phone at [phone]. Referrals: Willian Gurrola MD [ [facility] STAFF PHYSICIAN] - Equipment/Supplies: Walker Activity:: Elevate Remove Dressings/Wound Care:: Do Not Remove Shower/Bathe:: Cover Diet:: As Tolerated Discharge Orders Discharge Orders: Discharge Order (Routine); Ordered 05/18/24 Ordered By: Sharlene Vale
[2024-05-18] MEDS: Normal Saline Flush 10 ML SYR IV (11:46)
--- NOTE | 2024-05-18 12:04 | W.PM.OP ---
Operative Note Operative Note PRE-OP DIAGNOSIS: RIGHT Knee Osteoarthritis POST-OP DIAGNOSIS: same PROCEDURE: Right Total Knee Replacement SURGEON: Willian Gurrola [employer] SPINNING LATHE OPERATOR: Sharlene Vale ANESTHESIA TYPE: Spinal Refer to Anesthesia Record ESTIMATED BLOOD LOSS: 100 PATHOLOGY: none sent TOURNIQUET TIME: 0 COMPLICATIONS: None Patient was transported to: PACU Patient's condition: stable Implants: 1. Depuy Attune Cementless Cruciate Retaining Femoral Component, Size 4 2. Depuy Attune Cementless Fixed Bearing Tibial Component, Size 4 3. Depuy Attune 4x7mm CR/FB Poly Indications: I have seen Sahara in clinic for symptoms of knee arthritis, confirmed with radiographic findings. She has exhausted nonoperative methods and was having significant limitations in daily function and desired better function and less pain. I discussed the technical details of a knee replacement. I explained the risks of the procedure to include, but not limited to, bleeding, infection, pain, stiffness, fracture, damage to nerves and vessels, damage to muscles and tendons, loosening, need for repeat procedure, blood clot and cardiopulmonary demise. Despite these risks, Sahara elected to proceed. Findings: There was significant signs of arthritis throughout the knee, mostly involving the medial compartment. Procedure Description: Sahara was greeted in the preoperative holding area where the correct side was identified and marked. The consent was reviewed with the patient and signed. The history and physical was updated. All questions were answered. Preoperative medications were administered: Acetaminophen 1000mg, Celebrex 400mg, and Gabapentin 300mg. An adductor canal block was then administered by the anesthesia team in the DSU. She was taken back to the operating room. A spinal anesthestic was then administered. The patient was placed into the supine position on the operating room table. Posts were placed for positioning during the procedure. All bony prominences were well padded. Prophylactic antibiotics in the form of Cefazolin were administered. 1g of Tranxemic Acid was given intravenously within 30 minutes of incision. The right leg was then prepped with Chloraprep and draped in a standard fashion with impervious stockinette. A second prep with Chloraprep was performed prior to application of Iodine impregnated skin protection. A timeout to confirm correct identity, side and site, procedure, allergies, anesthesia, and medical concerns was performed. With the knee in some flexion, a midline incision was made overlying the knee. Full thickness skin flaps were raised once the extensor mechanism was encountered. These were raised medially and laterally. Any bleeding was controlled with electrocautery. Once the extensor mechanism was fully exposed, a medial parapatellar arthrotomy was performed in a flexed position. All bleeding from the arthrotomy and the geniculate arteries was coagulated. A medial subperiosteal peel was performed with electrocautery to the midcoronal plane. The fat pad was removed while keeping the patellar tendon protected. The anterior distal femur synovium was removed for later visualization. The ACL and PCL were resected and the anterior horn of the lateral meniscus was transected. The knee was then flexed with the patella everted. Large osteophytes from the tibia were removed. Large osteophytes from the femur were removed. Using a step drill, and based on preoperative templating, the femoral canal was entered. This was done with a step drill without any difficulty. The intramedullary distal femoral cut guide was inserted, set to a 6 degree valgus cut and 9mm cut thickness. The distal femoral cut guide was then held in position and pinned. With the soft tissues protected, the distal cut was performed. This was passed over a few times to ensure a planar cut. I then turned attention to the tibia. The extramedullary guide was placed onto the leg. The distal aspect was slid medial to adjust for position of center of ankle and stay in line with shaft of the tibia. Approximately 3-5 degrees of posterior slope was kept in the proximal cutting guide. The center of the guide was aligned with the PCL. The stylus was used to assess cut thickness. The medial side, most involved side, was set for a 5mm cut. This was then held in position and pinned into place with 2 additional pins and a cross pin for stability. The medial and lateral collateral ligaments were protected and the cut was performed. With this completed, it was assessed and noted to be of appropriate dimensions. The guide was removed. A spacer block was inserted and the knee was brought into extension. The 6mm spacer block provided full extension, without hyperextension and with stability of both the medial and lateral collateral ligaments was assessed. The pins from the femur and the tibia were then removed. The distal femur was then sized. The anterior stylus was placed onto the lateral ridge of the anterior femur. This indicated a size 4 femur. The external rotation of the guide was adjusted to 3 degrees to match the epicondylar axis, perpendicular to Sammie?s line. The 4-in-1 cutting guide was the placed. The posterior medial femur cut was evaluated and appeared of good thickness. The spacer block was inserted underneath the cutting guide and stability was confirmed in 90 degrees of flexion. An marga wing was used to confirm appropriate position of the anterior cut to avoid notching. This cutting guide was ensured to be flush on the cut surface and then pinned into place with headed pins. While protecting the soft tissues, quad tendon, and collateral ligaments, the anterior and posterior cuts were performed with a saw. The central two pins were removed and the posterior and anterior chamfers were cut next. The notch-cutting guide was placed. This was pinned to lateralize the femoral component as much as possible while keeping it flush on the cut surface. This was then pinned into position. A reciprocating saw was used to make the notch cut. A rasp smoothed the cut surfaces. The medial and lateral menisci were removed. A trial femoral component was then inserted, impacted down to the cut surfaces, and the lug holes were drilled. A provisional trial tibial component was placed and the knee was brought through range of motion. The polyethylene was trialed until there was good flexion and extension with excellent stability to the medial and lateral collaterals. The patella was tracking without thumbs. A size 7mm polyethylene component provided the best range of motion and stability with less than 2mm gapping with medial and lateral stress and full extension without significant hyperextension. The tibial cut surface was fully exposed. The tibia was then sized as a 4. The tibia had been previously marked during trialing to correspond to the center of the tibial component to help with rotation. The trial was aligned to this abisai, approximately rotated to the medial 1/3rd of the tibial tubercle. The trial was pinned into place. The tibia was prepared with a reamer and a keel punch and lug holes. The trial components were removed. The final components were opened on the back table. The periosteal and capsular tissues, especially posteriorly, around the knee were then systematically injected with a periarticular cocktail consisting of 246mg of Ropivacaine, 0.5mg of Epinephrine, 0.08mg of Clonidine, and 30mg of Ketorolac, diluted to 100cc. Then, the knee components were placed. Starting with the tibial component, the tibia was subluxed anteriorly and the lug holes of the component were lined up. The tibia was then impacted with an impactor and mallet until the tibial component was in contact with the tibia. Then, the femoral component was inserted. The lug holes were aligned and the component was impacted into position. The final polyethylene component was inserted. The knee was irrigated with Surgiphor Betadine solution. This was allowed to sit in the knee for 3 minutes and then it was irrigated out with saline. I also performed an aggressive synovectomy around the periphery of the patella. Any prominence of bone about the lateral facet was also resected. Bovie electrocautery was utilized to perform the synovectomy around the circumference of the patella Then, the knee was taken through range of motion. The patella was tracking with a no-thumbs technique. The capsule was then reapproximated with a No. 1 Vicryl at multiple locations. The capsule was finally closed with a No. 2 Stratafix, barbed suture. The second dosing of 1g TXA was started. Deep tissues were then reapproximated with 0 Vicryl and 2-0 Vicryl. The skin was closed with a running 3-0 Monocryl in a subcuticular fashion. This was reinforced with skin glue. A Mepilex silver dressing was applied along with a [id number] OLGA wrap. A CryoCuff was applied. Sahara was transferred to the hospital bed without difficulty an suffering no apparent complication. She has a good prognosis. Physical therapy will start today and without restrictions, weight-bearing as tolerated. Aspirin 81mg BID will be used for DVT prophylaxis. Date of Procedure: 05/18/24
[2024-05-18] MEDS: ceFAZolin 2 GM/50 ML BAG IVPB (12:07)
[2024-05-18] MEDS: TRANEXAMIC ACID/SOD. CHL. 1,000 MG/100 ML BAG 600 MG IVPB (12:12)
--- NOTE | 2024-05-18 12:17 | W.ANESNERVE ---
Nerve Block Single Injection Procedure Date and Time Date Performed: 05/18/24 Procedure Start: 11:32 Location Where Procedure Performed Procedure Location: Day Surgery Unit Reason Performed: Postoperative Analgesia Requesting Provider: Willian Gurrola Timeout Performed Timeout Performed: Yes Monitoring Used ECG, Blood Pressure, SpO2 and See EMR for corresponding vital signs Sterility Sterility: Hand Hygiene, Surgical Cap, Surgical Mask, Sterile Gloves and Chlorhexidine Sedation Given During Procedure Sedation Given (Indicate Dose Given): No Sedation given Patient Mental Status Patient Mental Status: Awake Nerve Block 1st Nerve Block: Laterality: Right Block Type: Adductor Canal Ultrasound Image Saved?: Yes Needle / Catheter Used: 100mm SonoPlex II Local Anesthetic Bolus (Indicate Dose Given): Lidocaine used for local infiltration of skin, Injected in 3-5ml increments after negative blood aspiration, Bupivacaine 0.25% Dose:: 10mL and Exparel Dose:: 10mL Additives (Indicate Dose Given): None Ultrasound: Sterile probe cover and gel used Nerve Stimulator: Supplement to Ultrasound use and No twitch or parasthesia noted < 0.5 mA Paresthesia: None Procedure Tolerated: No Complications Procedure Outcome: Successful Performed By: Lila Perales
--- NOTE | 2024-05-18 14:55 | W.ANESPOSTOP ---
Postoperative Evaluation Date, Time and Location Date Performed: 05/18/24 Time Performed: 14:55 Patient Location: Day Surgery Unit Vital Signs Most Recent Imported Vital Signs: Most Recent Vital Signs Temp Pulse Resp BP Pulse Ox 36.4 C L 69 19 128/53 L 96 05/18/24 14:42 05/18/24 14:42 05/18/24 14:42 05/18/24 14:42 05/18/24 14:42 Pain Score Most Recent Pain Score: Most Recent Pain Score Pain Level [Right Knee] 0 05/18/24 10:22 Pain Level 1 05/18/24 13:50 Assessment Mental Status: Awake (Alert & Oriented to Patient Baseline) Airway and Respiratory Function: Patent airway with normal (patient baseline) respiratory exam Cardiovascular Function: Hemodynamically Stable Hydration Status: Adequately Hydrated Nausea & Vomiting: No Nausea or Vomiting Pain: Pain is tolerable per patient Peripheral Nerve Block: Regional nerve block not resolved at time of post operative discharge
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
[2024-05-18] MEDS: Celecoxib 200 MG CAP PO (20:49)
[2024-05-19] MEDS: ceFAZolin 1 GM/50 ML BAG IVPB ×2 (00:58→07:42)
[2024-05-19] MEDS: Normal Saline Flush 10 ML SYR IV (00:59)
[2024-05-19 02:53] VITALS: BP 115/59; PULSE 67; RESP 18; TEMP 36.1; O2SAT 94
[2024-05-19] MEDS: Acetaminophen 325 MG TAB 650 MG PO (03:09)
[2024-05-19] MEDS: Levothyroxine 100 MCG TAB PO (05:53)
--- NOTE | 2024-05-19 05:53 | W.PM.PROGNOT ---
Date of Service Date of service: 05/19/24 Time of Service: 07:00 Assessment and Plan Assessment and plan (1) History of total right knee replacement: Status: Acute Assessment and plan: Sahara is an 84-year-old female who is status post right knee replacement. She was admitted last night for observation due to some nausea and persistent emesis and drowsiness. She feels much better this morning. She was able to ambulate to the bathroom with nursing. We will plan to work with physical therapy this morning and likely discharge to home. No acute concerns. No signs of acute complications. Subjective Subjective Interval history since last seen: No recurrent emesis. Nausea improved. Much less sleepy. Able to void. Pain is currently controlled with oral regimen. Exam Narrative Exam Narrative: Sitting up in the bed. No acute distress. Drowsy but easily responds to all questions and acts appropriately. No acute distress. Alert and oriented x 3. Evaluation of the right lower extremity demonstrates a clean dry and intact dressing. He is able to straight leg raise. No significant pain with gentle range of motion of the right knee. Sensation intact to light touch over the deep and superficial peroneal nerve and tibial nerve. Objective Last Vital Signs Temp 36.1 C L 05/19/24 02:53 Pulse 67 05/19/24 02:53 Resp 18 05/19/24 02:53 BP 115/59 L 05/19/24 02:53 Pulse Ox 94 05/19/24 02:53 PAWSS Have you Been Recently Intoxicated or Drunk Within the Last 30 days?: No Have you Ever Experienced Previous Episodes of Alcohol Withdrawal?: No Have you ever Experienced Withdrawal Seizures?: No Have you ever Experienced Delirium Tremens(DT)s?: No Have you ever undergone Alcohol Rehabilitation Treatment (i.e, inpt ot outpatient treatment programs)?: No Have you ever Experienced Blackouts?: No Have you ever Combined Alcohol with other Downers within the last 90 days?: No Have you ever Combined Alcohol with any other Substance of Abuse during the last 90 days?: No Positive Blood Alcohol level on Presentation? [PCS.BAL]: No Evidence of Increased Autonomic Activity (i.e. HR>120, tremor, sweating, agitation, nausea)?: No Result: 0 Time Spent with Patient Time Spent with Patient: <25 minutes Time was spent: preparing to see the patient(eg.review tests), obtaining and/or reviewing separately otained hiistory and counseling the patient
[2024-05-19 07:36] VITALS: BP 113/50; PULSE 62; RESP 18; TEMP 36.6; O2SAT 93
[2024-05-19] MEDS: Celecoxib 200 MG CAP PO (07:40)
[2024-05-19] MEDS: Metoprolol CR 25 MG TABCR PO (07:40)
[2024-05-19] MEDS: Losartan 25 MG TAB PO (07:40)
[2024-05-19] MEDS: Dexamethasone 4 MG TAB PO (07:40)
[2024-05-19] MEDS: Multivitamin TAB 1 TAB PO (07:40)
[2024-05-19] MEDS: Ezetimibe 10 MG TAB PO (07:40)
[2024-05-19] MEDS: Empaglifozin 10 MG TAB PO (07:40)
[2024-05-19] MEDS: Rosuvastatin 20 MG TAB PO (07:40)
--- NOTE | 2024-05-19 08:37 | PT.INTREAT ---
PT Notes Visit Reasons: Right knee DJD Date: 05/19/24 PRECAUTIONS: Fall. Standard. Activity as tolerated. SUBJECTIVE: Pt in recliner when approached for therapy this morning, agreed to participating with therapy session. OBJECTIVE: ?IV line on right ante cubital, ? PAIN: 210 VITALS: monitored by nursing Therapeutic Activities 62526: Direct one-on-one instruction in dynamic activities to improve functional performance. ?? BED MOBILITY/TRANSFERS? Rolling L/R: independent Supine-sit: ?independent? Sit-supine: ?independent ? Sit-stand: independent? Stand-sit: ??independent ? Bed-Chair:? independent ? Chair-bed: independent Provided skilled cues and instruction on performance and technique throughout. Gait Training 43867: Direct one-on-one instruction and skilled instruction in: Employing an assistive device Modified weight-bearing status Movement sequencing Turning and movement with proper form Provided verbal cues for equipment management and technique Provided instruction in gait pattern Patient education regarding pacing and breathing techniques to maximize activity tolerance? GAIT? Assistive Device: ??FWW ? Weight bearing: WBAT Assist: ?supervision ? Distance:?? 200'? Deviation: ?antalgic gait ? STAIRS:? Step to gait pattern, 6x4, 4x6? up/down bilateral handrail, SBA ? Therapeutic Exercises 36857: Direct one-on-one instruction in therapeutic exercises to develop strength, endurance, range of motion and flexibility. Exercises Sit to stand from regular chair with BUE support [id number] Heel slides [id number] Quad sets [id number] Small range SLR [id number] seated mrch [id number] Seated SAQ [id number] Seated LAQ [id number] ? Provided skilled instruction in proper exercise performance Provided skilled manual cues to facilitate proper muscle recruitment and/or form: ASSESSMENT:?Pt reports she feels much better, tolerated activity well, pain did not increase did not have episodes of nausea during session. PLAN: Continue with balance training, global strengthening and general conditioning for improved safety, mobility and activity tolerance until pt is ready for DC. TREATMENT CODE/TIME: 05939h5, [id number] 25mins (8:15-8:40am)
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
== END 2024-05-19 11:33 | disposition home or self-care (01) ==
LOC: SUR 11:47 → MS 17:51
PROVIDERS: Admitting Provider Student in an Organized Health Care Education/Training Program; PCP Family Medicine; Visit Provider Student in an Organized Health Care Education/Training Program
PROC: (CPT 27447; principal; 2024-05-18 13:00)
DX: M17.11 Unilateral primary osteoarthritis, right knee (principal); I25.10 Atherosclerotic heart disease of native coronary artery without angina pectoris; E78.5 Hyperlipidemia, unspecified; M54.50 Low back pain, unspecified; M54.6 Pain in thoracic spine; Z95.5 Presence of coronary angioplasty implant and graft
CPT/HCPCS: 27447; 64447; 96365; 96366; 96375; 97110; 97162; 97530; C1776; G0378; J0665; J0666; J0690; J1790; J2003; J2371; J2405; J2704; J8540

== ENCOUNTER 2024-05-31 15:33 | Outpatient (CLI) | payer MEDICARE, SELFPAY ==
--- NOTE | 2024-05-31 11:00 | DI.RAD_ITS ---
Exam(s) XR STANDING ALIGNMENT XR KNEE RT 1V EXAM: XR STANDING ALIGNMENT CLINICAL HISTORY: F/U RIGHT TKA. TECHNIQUE: 2D digital imaging was performed. Standing AP views were performed from the pelvis throu gh the ankles. COMPARISON: CR XR KNEE RT 1V from 05/31/2024 FINDINGS: BONES: No acute fracture is present. No bony destructive lesion is seen. Leg length discrepancy: No significant overall leg length discrepancy. JOINTS: Knees: Status post placement of right total knee prosthesis. The left knee joint spaces ar e maintained. The ankle joints show mild degenerative changes. The hip joints are unremarkable. SOFT TISSUE: Bilateral lower extremity edema. IMPRESSION: Status post placement of right knee prosthesis. No significant leg length discrepancy. DATA REPOSITORY: RADIATION DOSE DELIVERED:
== END 2024-05-31 15:34 | disposition home or self-care (01) ==
LOC: DIORS 15:33
PROVIDERS: PCP Family Medicine; Referring Provider Family Medicine; Visit Provider Student in an Organized Health Care Education/Training Program
DX: Z96.651 Presence of right artificial knee joint (principal); Z47.1 Aftercare following joint replacement surgery
CPT/HCPCS: 99024; 73560; 77073

== ENCOUNTER → 2024-07-01 10:38 | Outpatient (BNVA) | payer MEDICARE, SELFPAY | PROVIDERS: PCP Family Medicine; Referring Provider Family Medicine | DX: Z47.1 Aftercare following joint replacement surgery (principal); Z96.651 Presence of right artificial knee joint | CPT/HCPCS: 99024 ==

== ENCOUNTER → 2024-07-13 07:48 | Outpatient (BNVA) | payer MEDICARE, SELFPAY | PROVIDERS: PCP Family Medicine; Referring Provider Family Medicine; Visit Provider Podiatrist | DX: L60.0 Ingrowing nail (principal); L84 Corns and callosities; M79.671 Pain in right foot; I87.2 Venous insufficiency (chronic) (peripheral) | CPT/HCPCS: 99213 ==

== ENCOUNTER → 2024-08-09 10:51 | Outpatient (BNVA) | payer MEDICARE, SELFPAY | PROVIDERS: PCP Family Medicine; Visit Provider Student in an Organized Health Care Education/Training Program | DX: Z47.1 Aftercare following joint replacement surgery (principal); T84.82XA Fibrosis due to internal orthopedic prosthetic devices, implants and grafts, initial encounter | CPT/HCPCS: 99213 ==

== ENCOUNTER → 2024-11-08 10:52 | Outpatient (BNVA) | payer MEDICARE, SELFPAY | PROVIDERS: PCP Family Medicine; Referring Provider Family Medicine; Visit Provider Physician Assistant | DX: Z47.1 Aftercare following joint replacement surgery (principal); M25.661 Stiffness of right knee, not elsewhere classified | CPT/HCPCS: 99213 ==